=== PATIENT | female | born 2000 | race African-American/Black ===

== ENCOUNTER 2022-07-15 05:52 | Day surgery (SDC) | payer BC ==
[2022-07-12 13:40] VITALS: BMI 29.2
[2022-07-15] MEDS ORDERED: PROPOFOL 40 ML ONE (07:21)
[2022-07-15] MEDS ORDERED: Midazolam HCl 2 mg/2 ml Vial ONE (07:21)
[2022-07-15] MEDS ORDERED: Fentanyl 100 MCG/2 ML VIAL ONE (07:21)
== END 2022-07-15 08:49 | disposition home or self-care (01) ==
LOC: CSHSDC 05:52
PROVIDERS: ATTEND Internal Medicine Gastroenterology
PROC: 0DB78ZX Excision of Stomach, Pylorus, Via Natural or Artificial Opening Endoscopic, Diagnostic (ICD-10-PCS; principal; 2022-07-15)
PROC: 0DB68ZX Excision of Stomach, Via Natural or Artificial Opening Endoscopic, Diagnostic (ICD-10-PCS; principal; 2022-07-15)
PROC: 0DJD8ZZ Inspection of Lower Intestinal Tract, Via Natural or Artificial Opening Endoscopic (ICD-10-PCS; principal; 2022-07-15)
DX: K64.9 Unspecified hemorrhoids (principal); K62.89 Other specified diseases of anus and rectum; K31.7 Polyp of stomach and duodenum; K25.9 Gastric ulcer, unspecified as acute or chronic, without hemorrhage or perforation; K29.70 Gastritis, unspecified, without bleeding; K58.0 Irritable bowel syndrome with diarrhea; J45.909 Unspecified asthma, uncomplicated; F41.9 Anxiety disorder, unspecified; F32.A Depression, unspecified; F90.9 Attention-deficit hyperactivity disorder, unspecified type; M50.30 Other cervical disc degeneration, unspecified cervical region; Z88.8 Allergy status to other drugs, medicaments and biological substances; Z79.899 Other long term (current) drug therapy
CPT/HCPCS: 88305; 88342; J2250; J2704; J3010

== ENCOUNTER 2024-02-16 09:18 | Outpatient (CLI) | payer BC ==
[2024-02-16] MEDS ORDERED: Iopamidol 300 61% 100 ML VIAL FS ONE (10:37)
== END 2024-02-16 09:19 | disposition home or self-care (01) ==
LOC: CSHCT 09:18
PROVIDERS: ATTEND Nurse Practitioner Family
DX: R10.31 Right lower quadrant pain (principal); R10.2 Pelvic and perineal pain
CPT/HCPCS: 74177; 76856; Q9967

== ENCOUNTER 2024-07-18 07:46 | Day surgery (SDC) | payer BC ==
[2024-07-16 11:53] VITALS: BMI 28.1
[2024-07-16 12:25] LABS: BHCG - Serum Negative (NEGATIVE); Pregs Control Background? CLEAR/WHITE (CLR/WHITE); Pregs Control Bar Appear? YES (CONTROL BAR)
[2024-07-16 12:29] LABS: Hematocrit 37.2 % (34.9-44.5); Mean Corpuscular HGB CONC 32.3 g/dL (32.0-36.0); Mean Corpuscular Hemoglobin 31.1 pg (27.0-33.0); Mean Corpuscular Volume 96.4 fL (81.6-98.3); Mean Platelet Volume 9.8 fL (7.4-10.4); Platelet Count 251 10x3/uL (150-450); RBC Distribution Width 12.2 % (11.5-14.5); Red Blood Cell (RBC) Count 3.86 10x6/uL (3.90-5.03); White Blood Cell (WBC) Count 9.5 10x3/uL (3.5-10.5)
[2024-07-18] MEDS ORDERED: CeleCOXIB 100 MG CAP ONE (08:04)
[2024-07-18] MEDS ORDERED: Gabapentin 300 MG CAP ONE (08:04)
[2024-07-18] MEDS ORDERED: Famotidine/PF 20 mg/2ml Vial ONE (08:05)
[2024-07-18] MEDS ORDERED: Dexamethasone 4 mg/ml Vial ONE (08:22)
[2024-07-18] MEDS ORDERED: Rocuronium Bromide 10 MG/ML (10ML VIAL) ONE (08:22)
[2024-07-18] MEDS ORDERED: Ondansetron PF 4 MG/2 ML Vial ONE (08:22)
[2024-07-18] MEDS ORDERED: Lidocaine 1% PF 5 ML VIAL ONE (08:22)
[2024-07-18] MEDS ORDERED: PROPOFOL 20 ML ONE (08:23)
[2024-07-18] MEDS ORDERED: Scopolamine 1 mg/72 hour Patch ONE (08:39)
[2024-07-18] MEDS ORDERED: CEFAZOLIN 2 GM VIAL ONE (09:23)
[2024-07-18] MEDS ORDERED: Midazolam HCl 2 mg/2 ml Vial ONE (09:24)
[2024-07-18] MEDS ORDERED: fentaNYL 50 mcg/mL 1 mL Vial ONE (09:26)
[2024-07-18] MEDS ORDERED: PHENYLEPHRINE-NS 100 MCG/ML 10 ML SYRINGE ONE (10:10)
[2024-07-18] MEDS ORDERED: Tranexamic Acid 1,000 MG/10 ML VIAL ONE (10:12)
== END 2024-07-18 12:05 | disposition home or self-care (01) ==
LOC: CSHSDC 07:46
PROVIDERS: ATTEND Obstetrics & Gynecology
PROC: 0UB98ZZ Excision of Uterus, Via Natural or Artificial Opening Endoscopic (ICD-10-PCS; principal; 2024-07-18)
DX: D25.0 Submucous leiomyoma of uterus (principal); F90.9 Attention-deficit hyperactivity disorder, unspecified type; J45.909 Unspecified asthma, uncomplicated; Z88.6 Allergy status to analgesic agent; Z88.5 Allergy status to narcotic agent; Z79.51 Long term (current) use of inhaled steroids; Z98.890 Other specified postprocedural states; Z91.014 Allergy to mammalian meats
CPT/HCPCS: 84703; 85027; 86850; 86900; 86901; 88305; J1100; J2250; J2405; J2704; J3010; J3490